=== PATIENT | female | born 1995 | race Asian ===

== ENCOUNTER 2016-11-05 20:30 | Emergency (ER) | payer OTHER ==
[~2016-11-05] VITALS: Ht 152.4 cm; Wt 54.4 kg
== END 2016-11-05 22:23 | disposition home or self-care (01) ==
LOC: CED 20:30
DX: T63.441A Toxic effect of venom of bees, accidental (unintentional), initial encounter (principal); Y92.9 Unspecified place or not applicable
CPT/HCPCS: 84703; 96372; 99283; J0171